=== PATIENT | male | born 1945 | race Caucasian/White ===

== ENCOUNTER → 2019-08-25 10:08 | Outpatient (BNVA) | payer MEDICARE, OTHER, SELFPAY | PROVIDERS: Family Provider Physician Assistant Medical; PCP Physician Assistant Medical; Visit Provider Urology | DX: N30.80 Other cystitis without hematuria (principal); R33.8 Other retention of urine; R31.0 Gross hematuria; C66.1 Malignant neoplasm of right ureter; C67.4 Malignant neoplasm of posterior wall of bladder | CPT/HCPCS: 81001 ==

== ENCOUNTER 2019-09-15 08:00 | Outpatient (CLI) | payer MEDICARE, OTHER, SELFPAY | END 2019-09-15 09:00 | disposition home or self-care (01) | LOC: LAB 02-22 13:58 | PROVIDERS: PCP Physician Assistant Medical; Visit Provider Urology | DX: C67.4 Malignant neoplasm of posterior wall of bladder (principal) | CPT/HCPCS: 81001 ==

== ENCOUNTER 2019-09-15 08:01 | Outpatient (CLI) | payer MEDICARE, OTHER, SELFPAY ==
--- NOTE | 2019-09-15 08:15 | XR_ITS ---
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 Findings: The preliminary film showed no renal or ureteral calculi. After the intravenous injection of contrast there is prompt excretion from both kidneys. The renal cortical outlines are unremarkable. The corti brenda outlines of the right kidney are obscured by overlying bowel gas and less so on the left kidney. The pyelocalyceal systems are normal. The ureters appear to be normal and there is no evidence of any ureteral stone, obstruction or dilatation. The bladder fills well and is elevated by an enlarged pro state. The post voiding film shows a moderate amount of residual. XR/XR IVP w [id number] [id number] Impression: 1. Negative for ureteral lesion or obstruction. 2. Minimal post void residual in the bladder. 3. No change from previous IVP.
[2019-09-15 08:48] LABS: Blood Urea Nitrogen 16 mg/dL (8-23)
[2019-09-15] MEDS: iohexol 300 mg/mL 50 mL Btl IV (09:43)
== END 2019-09-15 08:02 | disposition home or self-care (01) ==
LOC: RAD 08:08
PROVIDERS: Family Provider Physician Assistant Medical; PCP Physician Assistant Medical; Visit Provider Urology
DX: C66.1 Malignant neoplasm of right ureter (principal)
CPT/HCPCS: 36415; 74400; 82565; 84520; Q9967

== ENCOUNTER → 2019-12-21 14:13 | Outpatient (BNVA) | payer MEDICARE, OTHER, SELFPAY | PROVIDERS: Family Provider Physician Assistant Medical; PCP Physician Assistant Medical; Visit Provider Urology | DX: C67.4 Malignant neoplasm of posterior wall of bladder (principal) | CPT/HCPCS: 81001 ==

== ENCOUNTER → 2020-06-21 14:12 | Outpatient (BNVA) | payer MEDICARE, OTHER, SELFPAY | PROVIDERS: Family Provider Physician Assistant Medical; PCP Physician Assistant Medical; Visit Provider Urology | DX: C67.4 Malignant neoplasm of posterior wall of bladder (principal); C66.1 Malignant neoplasm of right ureter; N52.1 Erectile dysfunction due to diseases classified elsewhere | CPT/HCPCS: 81003 ==

== ENCOUNTER → 2021-01-23 14:21 | Outpatient (BNVA) | payer MEDICARE, SELFPAY | PROVIDERS: Family Provider Physician Assistant Medical; PCP Physician Assistant Medical; Visit Provider Urology | DX: C67.4 Malignant neoplasm of posterior wall of bladder (principal); C66.1 Malignant neoplasm of right ureter | CPT/HCPCS: 81003 ==

== ENCOUNTER 2021-07-26 13:23 | Outpatient (CLI) | payer MEDICARE, SELFPAY ==
--- NOTE | 2021-07-26 13:15 | XR_ITS ---
WS: [id number] Exam: XR IVP w [id number] [id number] Date/Time of Exam: 07/26/2021 1:38 PM Reason For Exam: MALIGNANT NEOPLASM OF RIGHT URETER Compared to prior IVP 09/15/2019. There is prompt uptake and excretion of contrast by both kidneys. The pyelocalyceal systems and urete rs are patent. No obstruction was noted. The kidneys are smooth in contour as visualized. The ureters are not dilated or deviated. Mild trabeculation of the urinary bladder. No obvious intrinsic or extr insic filling defects of the bladder are identified. Moderate post void residual in the bladder. Over all, no change since prior IVP. XR/XR IVP w [id number] IMPRESSION: 1. Normal renal function with patency of the bilateral renal collecting structu res and ureters. No ureteral lesion identified. 2. Moderate postvoid residual volume in the bladder
[2021-07-26 14:15] LABS: Blood Urea Nitrogen 12 mg/dL (8-23)
[2021-07-26] MEDS: iohexol 300 mg/mL 100 mL Btl IV (15:20)
== END 2021-07-26 13:24 | disposition home or self-care (01) ==
LOC: RAD 13:32
PROVIDERS: PCP Family Medicine; Visit Provider Urology
DX: C66.1 Malignant neoplasm of right ureter (principal)
CPT/HCPCS: 74400; 81003; 82565; 84520

== ENCOUNTER → 2021-12-24 10:19 | Outpatient (BNVA) | payer MEDICARE, SELFPAY | PROVIDERS: PCP Family Medicine; Visit Provider Podiatrist Foot & Ankle Surgery | DX: G62.9 Polyneuropathy, unspecified (principal); L60.3 Nail dystrophy; Z89.431 Acquired absence of right foot; Q66.30 Other congenital varus deformities of feet, unspecified foot; M79.671 Pain in right foot; R09.89 Other specified symptoms and signs involving the circulatory and respiratory systems; G63 Polyneuropathy in diseases classified elsewhere; I73.9 Peripheral vascular disease, unspecified; L97.411 Non-pressure chronic ulcer of right heel and midfoot limited to breakdown of skin | CPT/HCPCS: 99214 ==

== ENCOUNTER → 2022-01-02 13:05 | Outpatient (BNVA) | payer MEDICARE, SELFPAY | PROVIDERS: PCP Family Medicine; Visit Provider Podiatrist Foot & Ankle Surgery | DX: G62.9 Polyneuropathy, unspecified (principal); L60.3 Nail dystrophy; Z89.431 Acquired absence of right foot; Q66.30 Other congenital varus deformities of feet, unspecified foot; M79.671 Pain in right foot; R09.89 Other specified symptoms and signs involving the circulatory and respiratory systems; G63 Polyneuropathy in diseases classified elsewhere; I73.9 Peripheral vascular disease, unspecified; L97.411 Non-pressure chronic ulcer of right heel and midfoot limited to breakdown of skin | CPT/HCPCS: 99213 ==

== ENCOUNTER → 2022-01-22 13:07 | Outpatient (BNVA) | payer MEDICARE, SELFPAY | PROVIDERS: PCP Family Medicine; Visit Provider Urology | DX: C67.4 Malignant neoplasm of posterior wall of bladder (principal); C66.1 Malignant neoplasm of right ureter | CPT/HCPCS: 52000; 81003 ==

== ENCOUNTER → 2022-03-19 13:06 | Outpatient (BNVA) | payer MEDICARE, SELFPAY | PROVIDERS: PCP Family Medicine; Visit Provider Podiatrist Foot & Ankle Surgery | DX: L60.3 Nail dystrophy (principal); Q66.30 Other congenital varus deformities of feet, unspecified foot; M79.671 Pain in right foot; R09.89 Other specified symptoms and signs involving the circulatory and respiratory systems; G63 Polyneuropathy in diseases classified elsewhere; I73.9 Peripheral vascular disease, unspecified | CPT/HCPCS: 99214 ==

== ENCOUNTER → 2022-07-10 09:56 | Outpatient (BNVA) | payer MEDICARE, SELFPAY | PROVIDERS: PCP Family Medicine; Visit Provider Podiatrist Foot & Ankle Surgery | DX: L85.1 Acquired keratosis [keratoderma] palmaris et plantaris (principal); I73.9 Peripheral vascular disease, unspecified; L60.3 Nail dystrophy; Z89.431 Acquired absence of right foot; Q66.31 Other congenital varus deformities of feet, right foot | CPT/HCPCS: 17110 ==

== ENCOUNTER → 2022-07-18 13:56 | Outpatient (BNVA) | payer MEDICARE, SELFPAY | PROVIDERS: PCP Family Medicine; Visit Provider Urology | DX: C67.4 Malignant neoplasm of posterior wall of bladder (principal) | CPT/HCPCS: 52000 ==

== ENCOUNTER → 2022-09-25 09:45 | Outpatient (BNVA) | payer MEDICARE, SELFPAY | PROVIDERS: PCP Family Medicine; Visit Provider Podiatrist Foot & Ankle Surgery | DX: I73.9 Peripheral vascular disease, unspecified (principal); L84 Corns and callosities; L60.3 Nail dystrophy; Z89.431 Acquired absence of right foot; R09.89 Other specified symptoms and signs involving the circulatory and respiratory systems; G63 Polyneuropathy in diseases classified elsewhere; L85.1 Acquired keratosis [keratoderma] palmaris et plantaris; Q66.31 Other congenital varus deformities of feet, right foot | CPT/HCPCS: 17110 ==

== ENCOUNTER → 2023-02-11 09:50 | Outpatient (BNVA) | payer MEDICARE, SELFPAY | PROVIDERS: PCP Family Medicine; Visit Provider Podiatrist Foot & Ankle Surgery | DX: I73.9 Peripheral vascular disease, unspecified; L84 Corns and callosities; L60.3 Nail dystrophy; M21.371 Foot drop, right foot; R09.89 Other specified symptoms and signs involving the circulatory and respiratory systems; G63 Polyneuropathy in diseases classified elsewhere; L85.1 Acquired keratosis [keratoderma] palmaris et plantaris | CPT/HCPCS: 11055 ==

== ENCOUNTER 2023-03-03 17:10 | Emergency (ER) | payer MEDICARE, SELFPAY ==
[2023-03-03 17:12] VITALS: BMI 26.5
[2023-03-03 17:15] VITALS: BP 154/71; PULSE 77; RESP 16; TEMP 37.1; O2SAT 97
--- NOTE | 2023-03-03 17:27 | XRR_ITS ---
PROCEDURE INFORMATION: Exam: XR Right Ankle Exam date and time: 03/03/2023 5:35 PM Age: 77 years old Clinical indication: Injury or trauma; Other: Trailer fell on ankle; Crushing and laceration; Without foreign body; Injury date: Today; Prior surgery; Surgery date: 6+ months; Surgery type: Previous right ankle/foot surgery TECHNIQUE: Imaging protocol: Radiologic exam of the right ankle. Views: 3 or more views. COMPARISON: No relevant prior studies available. FINDINGS: Bones/joints: No acute fracture. There is nonacute deformity of the posterior calcaneus which may be congenital. Clinical correlation is needed. Mild degenerative changes are seen in the ankle mortise. The bones are somewhat demineralized. Soft tissues: Clips are seen in the posteromedial soft tissues of the distal lower leg. Vasculature: There are arterial calcifications. XR/XR ankle RT min 3V* [id number] IMPRESSION: Nonacute findings.
--- NOTE | 2023-03-03 17:47 | ED_ITS ---
HPI - Extremity Problem General: Chief complaint: Extremity Injury, Lower Stated complaint: left leg pain Time Seen by Provider: 03/03/23 17:14 History of Present Illness: 77-year-old male presents emergency room with ankle injury. He was moving a trailer the trailer hitch dropped and scraped across the anterior aspect of his right lower extremity previous had significant injury with revision and skin flap rotation to the repair calcaneus injury. Denies any other injuries he is not on any anticoagulants. 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 Required multiple procedures for clearing. Surgical History H/O endoscopy H/O transurethral destruction of bladder lesion History of appendectomy History of meniscectomy of left knee History of shoulder surgery right History of vocal cord polypectomy Hx of foot surgery Family History Mother , AT AGE 72 Lymphoma Father , AT AGE 85 Arthritis Emphysema lung Sister Liver cancer Social History Smoking and tobacco status: never smoked Alcohol intake: never Marital status: Current occupational status: retired Current occupation: SELF EMPLOYED Physical Exam Const: GENERAL APPEARANCE: cooperative and comfortable ORIENTATION/CONSCIOUSNESS: Yes awake, Yes oriented to person, Yes oriented to place and Yes oriented to time HENMT: COMMON NORMALS: normocephalic, atraumatic and hearing grossly normal bilaterally HEAD & SCALP: normocephalic and atraumatic Resp: COMMON NORMALS: normal respiratory effort, No retractions, No use of accessory muscles and clear to auscultation bilaterally AUSCULTATION: clear to auscultation bilaterally Cardio: COMMON NORMALS: regular rate, regular rhythm and No murmurs present (Cardio) RATE: regular rate RHYTHM: regular rhythm Extremity: OTHER: Examination of the left tibia there is an abrasion on the anterior tibia partial-thickness nothing really amenable to suturing. No deformities Neuro: SENSORIUM/ORIENTATION: Yes oriented to person, Yes oriented to place and Yes oriented to time Skin: COMMON NORMALS: no rashes or lesions noted GENERAL SKIN EXAM: no rashes or lesions noted Course Vital Signs: Vital signs: Vital Signs Temperature 98.8 F 03/03/23 17:15 Pulse Rate 77 03/03/23 17:15 Respiratory Rate 16 03/03/23 17:15 Blood Pressure 154/71 03/03/23 17:15 Pulse Oximetry 97 03/03/23 17:15 Oxygen Delivery Me thod Room Air 03/03/23 17:15 MDM - Extremity (Nontraumatic) Medical Decision Making Tetanus updated given hydrocodone for pain discharge home topical antibiotic ointment follow-up as needed wound care instructions given X-rays did not show any acute fracture Medical Records I reviewed the patient's medical records. Lab Data I reviewed the patient's lab results. Radiology Impressions Ankle X-Ray 03/03/23 17:27 IMPRESSION: Nonacute findings. Discharge Plan Discharge Patient Disposition: Home Clinical Impression: Abrasion of leg, right Condition: Stable Prescriptions: New hydrocodone-acetaminophen 5-325 mg tablet 1 tab PO Q6H PRN (Reason: pain) Qty: 10 0RF mupirocin 2 % ointment 1 applic topical BID Qty: 22 0RF No Action multivitamin Tablet 1 tab PO DAILY docusate sodium [Stool Softener] 100 mg capsule 100 mg PO DAILY chlorpheniramine maleate [ChlorTabs] 4 mg tablet 4 mg PO Q8H amlodipine 5 mg tablet 5 mg PO DAILY fluticasone propionate 50 mcg/actuation spray,suspension 1 spray INTRANASAL .prn lovastatin 40 mg tablet 40 mg PO DAILY Adult 50 Plus Probiotic 4 billion cell capsule 4,000 mmu cells PO BID Rx Instructions: administer with a meal doxycycline hyclate 100 mg capsule 100 mg PO BID cefdinir 300 mg capsule 300 mg PO DAILY (DME) articulating AFO and accommodative orthopedic boot See Rx Instructions .Route .MEDSUPPLY Qty: 1 0RF Rx Instructions: As directed by [facility] mupirocin 2 % ointment 1 applic topical BID 30 Days Qty: 22 3RF (DME) articulating AFO and accompanying boot See Rx Instructions .Route .MEDSUPPLY Qty: 1 0RF Rx Instructions: As directed (DME) [place] to the right See Rx Instructions .Route .MEDSUPPLY Qty: 1 0RF Rx Instructions: As directed sildenafil 100 mg tablet 100 mg PO DIRECTED PRN (Reason: sexual activity) Qty: 20 12RF Rx Instructions: Take 1 hour before intercourse, on empty stomach, NO NITROGLYCERIN, MAX DOSE 100MG Discharge Orders: Discharge ED (Routine); Ordered 03/03/23 Ordered By: Tobin Diaz Referrals: Thomas Alfaro [Referring] - Patient Instructions: Opioid Safety, Pain Management Activity Restrictions/Additional Instructions: You are seen today after an accident with an abrasion to your leg. Apply topical antibiotic ointment twice a day until healed. Your tetanus was updated as well. Coding Level of Care Code ED Loss Prevention Associate for Garland Perez
[2023-03-03] MEDS: tetanus-dipt-pertussis 0.5 mL SDV IM (18:42)
== END 2023-03-03 19:36 | disposition home or self-care (01) ==
PROVIDERS: Emergency Provider Family Medicine; PCP Family Medicine
DX: S80.812A Abrasion, left lower leg, initial encounter (principal); Z85.51 Personal history of malignant neoplasm of bladder; Z85.54 Personal history of malignant neoplasm of ureter; W20.8XXA Other cause of strike by thrown, projected or falling object, initial encounter; Z23 Encounter for immunization
CPT/HCPCS: 73610; 90471; 90715; 99283

== ENCOUNTER → 2023-03-14 14:46 | Outpatient (BNVA) | payer MEDICARE, SELFPAY | PROVIDERS: PCP Family Medicine; Visit Provider Podiatrist Foot & Ankle Surgery | DX: Z89.431 Acquired absence of right foot; Q66.30 Other congenital varus deformities of feet, unspecified foot; M79.671 Pain in right foot; R09.89 Other specified symptoms and signs involving the circulatory and respiratory systems; G63 Polyneuropathy in diseases classified elsewhere; L97.822 Non-pressure chronic ulcer of other part of left lower leg with fat layer exposed; Q66.31 Other congenital varus deformities of feet, right foot | CPT/HCPCS: 99213 ==

== ENCOUNTER → 2023-03-20 13:04 | Outpatient (BNVA) | payer MEDICARE, SELFPAY | PROVIDERS: PCP Family Medicine; Visit Provider Nurse Practitioner Family | DX: I96 Gangrene, not elsewhere classified (principal); L97.812 Non-pressure chronic ulcer of other part of right lower leg with fat layer exposed | CPT/HCPCS: 97597; 97598; 99213; A6219 ==

== ENCOUNTER → 2023-04-08 13:55 | Outpatient (BNVA) | payer MEDICARE, SELFPAY | PROVIDERS: PCP Family Medicine; Visit Provider Nurse Practitioner Family | DX: I96 Gangrene, not elsewhere classified (principal); L97.812 Non-pressure chronic ulcer of other part of right lower leg with fat layer exposed | CPT/HCPCS: 99212 ==

== ENCOUNTER → 2023-04-22 13:58 | Outpatient (BNVA) | payer MEDICARE, SELFPAY | PROVIDERS: PCP Family Medicine; Visit Provider Nurse Practitioner Family | DX: I96 Gangrene, not elsewhere classified (principal); L97.812 Non-pressure chronic ulcer of other part of right lower leg with fat layer exposed | CPT/HCPCS: 97597 ==

== ENCOUNTER → 2023-04-29 13:49 | Outpatient (BNVA) | payer MEDICARE, SELFPAY | PROVIDERS: PCP Family Medicine; Visit Provider Nurse Practitioner Family | DX: I96 Gangrene, not elsewhere classified (principal); L97.812 Non-pressure chronic ulcer of other part of right lower leg with fat layer exposed | CPT/HCPCS: 97597; A6212 ==

== ENCOUNTER → 2023-05-06 14:24 | Outpatient (BNVA) | payer MEDICARE, SELFPAY | PROVIDERS: PCP Family Medicine; Visit Provider Nurse Practitioner Family | DX: I96 Gangrene, not elsewhere classified (principal); L97.812 Non-pressure chronic ulcer of other part of right lower leg with fat layer exposed | CPT/HCPCS: 97597 ==

== ENCOUNTER → 2023-05-13 13:52 | Outpatient (BNVA) | payer MEDICARE, SELFPAY | PROVIDERS: PCP Family Medicine; Visit Provider Nurse Practitioner Family | DX: I96 Gangrene, not elsewhere classified (principal); L97.812 Non-pressure chronic ulcer of other part of right lower leg with fat layer exposed | CPT/HCPCS: 97597; A6212 ==

== ENCOUNTER → 2023-05-27 14:54 | Outpatient (BNVA) | payer MEDICARE, SELFPAY | PROVIDERS: PCP Family Medicine; Visit Provider Thoracic Surgery (Cardiothoracic Vascular Surgery) | DX: I96 Gangrene, not elsewhere classified (principal); L97.812 Non-pressure chronic ulcer of other part of right lower leg with fat layer exposed | CPT/HCPCS: 97597; A6212 ==

== ENCOUNTER → 2023-06-10 13:54 | Outpatient (BNVA) | payer MEDICARE, SELFPAY | PROVIDERS: PCP Family Medicine; Visit Provider Nurse Practitioner Family | DX: Z09 Encounter for follow-up examination after completed treatment for conditions other than malignant neoplasm (principal); Z87.2 Personal history of diseases of the skin and subcutaneous tissue | CPT/HCPCS: 99212; A6212 ==

== ENCOUNTER → 2023-07-14 09:12 | Outpatient (BNVA) | payer MEDICARE, SELFPAY | PROVIDERS: PCP Family Medicine; Visit Provider Podiatrist Foot & Ankle Surgery | DX: L84 Corns and callosities (principal); Z89.431 Acquired absence of right foot; R09.89 Other specified symptoms and signs involving the circulatory and respiratory systems; G63 Polyneuropathy in diseases classified elsewhere; L60.0 Ingrowing nail; Q66.31 Other congenital varus deformities of feet, right foot | CPT/HCPCS: 99213 ==

== ENCOUNTER → 2023-08-07 09:58 | Outpatient (BNVA) | payer MEDICARE, SELFPAY | PROVIDERS: PCP Family Medicine; Visit Provider Podiatrist Foot & Ankle Surgery | DX: L60.0 Ingrowing nail (principal) | CPT/HCPCS: 11750 ==

== ENCOUNTER → 2023-08-25 14:22 | Outpatient (BNVA) | payer MEDICARE, SELFPAY | PROVIDERS: PCP Family Medicine; Visit Provider Podiatrist Foot & Ankle Surgery | DX: Z98.890 Other specified postprocedural states (principal); G63 Polyneuropathy in diseases classified elsewhere; Q66.31 Other congenital varus deformities of feet, right foot; Z89.431 Acquired absence of right foot | CPT/HCPCS: 99213 ==

== ENCOUNTER → 2023-11-26 14:52 | Outpatient (BNVA) | payer MEDICARE, SELFPAY | PROVIDERS: PCP Family Medicine; Visit Provider Podiatrist Foot & Ankle Surgery | DX: I73.9 Peripheral vascular disease, unspecified; L84 Corns and callosities; L60.3 Nail dystrophy; Z89.431 Acquired absence of right foot; G63 Polyneuropathy in diseases classified elsewhere; Q66.31 Other congenital varus deformities of feet, right foot | CPT/HCPCS: 11056; 11721 ==

== ENCOUNTER → 2024-01-13 14:04 | Outpatient (BNVA) | payer MEDICARE, SELFPAY | PROVIDERS: PCP Family Medicine; Visit Provider Podiatrist Foot & Ankle Surgery | DX: I73.9 Peripheral vascular disease, unspecified; L84 Corns and callosities; Z89.431 Acquired absence of right foot; G63 Polyneuropathy in diseases classified elsewhere; Q66.31 Other congenital varus deformities of feet, right foot | CPT/HCPCS: 11056 ==

== ENCOUNTER → 2024-11-04 12:58 | Outpatient (BNVA) | payer MEDICARE, SELFPAY | PROVIDERS: PCP Family Medicine; Visit Provider Specialist | DX: R20.0 Anesthesia of skin (principal); R20.2 Paresthesia of skin; M54.2 Cervicalgia; M25.511 Pain in right shoulder; M25.512 Pain in left shoulder | CPT/HCPCS: 95911 ==

== ENCOUNTER → 2024-12-21 10:40 | Outpatient (BNVA) | payer MEDICARE, SELFPAY | PROVIDERS: PCP Family Medicine; Visit Provider Podiatrist Foot & Ankle Surgery | DX: I73.9 Peripheral vascular disease, unspecified (principal); L84 Corns and callosities; Z89.431 Acquired absence of right foot; M79.671 Pain in right foot; G63 Polyneuropathy in diseases classified elsewhere; Q66.31 Other congenital varus deformities of feet, right foot | CPT/HCPCS: 11056; 99213 ==

== ENCOUNTER → 2025-02-08 14:17 | Outpatient (BNVA) | payer MEDICARE, SELFPAY | PROVIDERS: PCP Family Medicine; Visit Provider Podiatrist Foot & Ankle Surgery | DX: I73.9 Peripheral vascular disease, unspecified (principal); L84 Corns and callosities; M72.2 Plantar fascial fibromatosis; Z89.431 Acquired absence of right foot; Q66.31 Other congenital varus deformities of feet, right foot | CPT/HCPCS: 11056; 99213 ==

== ENCOUNTER → 2025-03-28 13:36 | Outpatient (BNVA) | payer MEDICARE, SELFPAY | PROVIDERS: PCP Family Medicine; Visit Provider Podiatrist Foot & Ankle Surgery | DX: I73.9 Peripheral vascular disease, unspecified (principal); L84 Corns and callosities; M25.572 Pain in left ankle and joints of left foot; M72.2 Plantar fascial fibromatosis; Z89.431 Acquired absence of right foot; Q66.31 Other congenital varus deformities of feet, right foot | CPT/HCPCS: 11056; 73610; 99214 ==

== ENCOUNTER → 2025-05-18 08:24 | Outpatient (BNVA) | payer MEDICARE, SELFPAY | PROVIDERS: PCP Family Medicine; Visit Provider Podiatrist Foot & Ankle Surgery | DX: M79.672 Pain in left foot (principal); I73.9 Peripheral vascular disease, unspecified; L84 Corns and callosities; S92.502A Displaced unspecified fracture of left lesser toe(s), initial encounter for closed fracture; W22.8XXA Striking against or struck by other objects, initial encounter; Z89.431 Acquired absence of right foot; Q66.31 Other congenital varus deformities of feet, right foot; M79.671 Pain in right foot; M72.2 Plantar fascial fibromatosis | CPT/HCPCS: 11056; 73630; 99213 ==